=== PATIENT | male | born 1990 | race Two or more races ===

== ENCOUNTER 2016-11-26 20:16 | Emergency (ER) | payer SELFPAY ==
[~2016-11-26] VITALS: Ht 177.8 cm; Wt 69.9 kg
--- NOTE | 2016-11-26 21:03 | PHYS DOC ---
Past Medical History Additional Past Medical Histor: Panic attacks Past Surgical History: No Surgical History Smoking: Cigarettes Social History Narrative: Senegalese speaking; here with S.O. who speaks Luxembourger Adult General Chief Complaint Chief Complaint: DIZZY/LIGHT HEADED HPI HPI Patient is a 26 year old male who presents with complaints of heat exhaustion. 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 We have been experiencing a heat wave locally. He has been complaining of feeling lightheaded, dizzy, shaky, weak. Nausea but no vomiting. Urine has been clear. Some low back pain. No chest pain, no abdominal pain. No fever. No stool changes. Review of Systems Review of Systems Constitutional: Denies fever or chills Eyes: Denies change in visual acuity, redness, or eye pain HENT: Denies nasal congestion or sore throat Respiratory: Denies cough or shortness of breath Cardiovascular: No chest pain. GI: Denies abdominal pain, vomiting, bloody stools or diarrhea. Some nausea, : Denies dysuria or hematuria; no dark urine. Musculoskeletal: Denies joint pain. Some back pain. Integument: Denies rash or skin lesions Neurologic: Mild headache, No focal weakness or sensory changes Current Medications Current Medications Current Medications Medications (Trade) Dose Ordered Sig/Harriet Start Time Stop Time Status Last Admin Dose Admin Ondansetron HCl (Zofran) 4 mg 1X ONCE 11/26/16 21:30 11/26/16 21:31 DC 11/26/16 21:30 4 MG Sodium Chloride 1,000 ml @ 1,000 mls/hr 1X ONCE 11/26/16 21:30 11/26/16 22:29 DC 11/26/16 21:30 1,000 MLS/HR Allergies Allergies Allergies Coded Allergies Type Severity Reaction Last Updated Verified No Known Drug Allergies 11/26/16 No Physical Exam Physical Exam Constitutional: Well developed, well nourished, no acute distress, non-toxic appearance. HENT: Normocephalic, atraumatic, bilateral external ears normal, oropharynx moist, no oral exudates, nose normal. Eyes: PERRLA, EOMI, conjunctiva normal, no discharge. Neck: Normal range of motion, no tenderness, supple, no stridor. Cardiovascular:Heart rate regular rhythm, no murmur Lungs & Thorax: Bilateral breath sounds clear to auscultation Abdomen: Bowel sounds normal, soft, no tenderness, no masses, no pulsatile masses. Skin: Warm, dry, no erythema, no rash. Back: No tenderness, no CVA tenderness. Extremities: No tenderness, no cyanosis, no clubbing, ROM intact, no edema. Neurologic: Alert and oriented X 3, normal motor function, normal sensory function, no focal deficits noted. Psychologic: Affect normal, judgement normal, mood normal. Current Patient Data Vital Signs Vital Signs Date Time Temp Pulse Resp B/P (MAP) Pulse Ox O2 Delivery O2 Flow Rate FiO2 11/26/16 21:30 66 16 127/69 (88) 98 Room Air 11/26/16 20:44 98.4 98.4 Lab Values Laboratory Tests Test 11/26/16 21:18 11/26/16 21:25 White Blood Count 6.3 x10^3/uL (4.0-11.0) Red Blood Count 4.74 x10^6/uL (4.30-5.70) Hemoglobin 14.2 g/dL (13.0-17.5) Hematocrit 42.4 % (39.0-53.0) Mean Corpuscular Volume 89 fL (79-100) Mean Corpuscular Hemoglobin 30 pg (25-35) Mean Corpuscular Hemoglobin Concent 34 g/dL (31-37) Red Cell Distribution Width 13.9 % (11.5-14.5) Platelet Count 226 x10^3/uL (140-400) Neutrophils (%) (Auto) 57 % (31-73) Lymphocytes (%) (Auto) 31 % (24-48) Monocytes (%) (Auto) 9 % (0-9) Eosinophils (%) (Auto) 2 % (0-3) Basophils (%) (Auto) 0 % (0-3) Neutrophils # (Auto) 3.6 x10^3uL (1.8-7.7) Lymphocytes # (Auto) 2.0 x10^3/uL (1.0-4.8) Monocytes # (Auto) 0.6 x10^3/uL (0.0-1.1) Eosinophils # (Auto) 0.1 x10^3/uL (0.0-0.7) Basophils # (Auto) 0.0 x10^3/uL (0.0-0.2) Sodium Level 142 mmol/L (136-145) Potassium Level 3.8 mmol/L (3.5-5.1) Chloride Level 102 mmol/L (98-107) Carbon Dioxide Level 32 mmol/L (21-32) Anion Gap 8 (6-14) Blood Urea Nitrogen 16 mg/dL (8-26) Creatinine 1.3 mg/dL (0.7-1.3) Estimated GFR (Cockcroft-Gault) 66.2 BUN/Creatinine Ratio 12 (6-20) Glucose Level 121 mg/dL (70-99) H Calcium Level 8.8 mg/dL (8.5-10.1) Magnesium Level 2.1 mg/dL (1.8-2.4) Total Bilirubin 0.7 mg/dL (0.2-1.0) Direct Bilirubin 0.1 mg/dL (0.0-0.2) Aspartate Amino Transferase (AST) 18 U/L (15-37) Alanine Aminotransferase (ALT) 31 U/L (16-63) Alkaline Phosphatase 105 U/L (46-116) Creatine Kinase 238 U/L (39-308) Total Protein 7.6 g/dL (6.4-8.2) Albumin 4.0 g/dL (3.4-5.0) Albumin/Globulin Ratio 1.1 (1.0-1.7) Urine Collection Type Unknown Urine Color Yellow Urine Clarity Clear Urine pH 5.5 Urine Specific Winn 1.020 Urine Protein Negative mg/dL (NEG-TRACE) Urine Glucose (UA) Negative mg/dL (NEG) Urine Ketones (Stick) Negative mg/dL (NEG) Urine Blood Negative (NEG) Urine Nitrite Negative (NEG) Urine Bilirubin Negative (NEG) Urine Urobilinogen Dipstick 0.2 mg/dL (0.2 mg/dL) Urine Leukocyte Esterase Negative (NEG) Urine RBC Occ /HPF (0-2) Urine WBC 0 /HPF (0-4) Urine Squamous Epithelial Cells Few /LPF Urine Bacteria 0 /HPF (0-FEW) Urine Mucus Mod /LPF Laboratory Tests 11/26/16 21:18 Laboratory Tests 11/26/16 21:18 Radiology/Procedures Radiology/Procedures [facility] [address] [place] [address] IMAGING REPORT Signed PATIENT: JEFF NORMAN ACCOUNT: [id number] : 1990 LOCATION: ER AGE: 26 SEX: M EXAM STATUS: REG ER ORD. PHYSICIAN: SAHINA LEE MD REASON: dizzy PROCEDURE: CT HEAD WO CONTRAST CT of the head without contrast History:DIZZY, HX HTN, NO PRIORS. Technique: Standard noncontrast images are obtained. Exposure: One or more of the following individualized dose reduction techniques were utilized for this examination: 1. Automated exposure control 2. Adjustment of the mA and/or kV according to patient size 3. Use of iterative reconstruction technique. Comparison: None Findings: Posterior fossa is unremarkable. No evidence of acute intracranial hemorrhage, mass effect, midline shift or abnormal extra-axial fluid collection. Evans-white matter distinction is intact. Ventricles unremarkable and symmetric Visualized orbits are unremarkable. Visualized paranasal sinuses and mastoids are clear. No acute calvarial abnormality Impression: No evidence of acute intracranial pathology. Electronically signed by: Ammon Lopez MD (11/26/2016 11:03 PM) [facility] DICTATED and SIGNED BY: AMMON LOPEZ MD DATE: 11/26/16 5865 Course & Med Decision Making Course & Med Decision Making Pertinent Labs and Imaging studies reviewed. (See chart for details) Evaluated patient. Environmental Monitoring Technician phone used and S.O. is able to interpret as well. IV NS, IV Zofran and lab obtained. lab and CT head negative. Patient much improved. Discussed ways to keep cool. Dragon Disclaimer Dragon Disclaimer This electronic medical record was generated, in whole or in part, using a voice recognition dictation system. Departure Departure Impression: Primary Impression: Heat exhaustion Disposition: 01 HOME, SELF-CARE Condition: GOOD Patient Instructions: Heat Disorders Problem Qualifiers Primary Impression: Heat exhaustion Encounter type: initial encounter Qualified Codes: T67.5XXA - Heat exhaustion, unspecified, initial encounter SHAINA LEE MD Nov 26, 2016 21:03
[2016-11-26] MEDS ORDERED: IV NORMAL SALINE 1000ML BAG 1,000 ML IV ONE (21:30)
[2016-11-26] MEDS ORDERED: ONDANSETRON PF 4 MG/2 ML VIAL. IV ONE (21:30)
[2016-11-26 21:32] LABS: BASO % 0 % (0-3); EOS % 2 % (0-3); HEMATOCRIT 42.4 % (39.0-53.0); HEMOGLOBIN 14.2 g/dL (13.0-17.5); LYMPH % 31 % (24-48); MEAN CORPUSCULAR HEMOGLOBIN 30 pg (25-35); MEAN CORPUSCULAR HGB CONC 34 g/dL (31-37); MEAN CORPUSCULAR VOLUME 89 fL (79-100); MONO % 9 % (0-9); NEUT % 57 % (31-73); PLATELET COUNT 226 x10^3/uL (140-400); RED BLOOD COUNT 4.74 x10^6/uL (4.30-5.70); RED CELL DISTRIBUTION WIDTH 13.9 % (11.5-14.5); WHITE BLOOD COUNT 6.3 x10^3/uL (4.0-11.0)
[2016-11-26 21:35] LABS: BILIRUBIN,URINE NEGATIVE (NEG); GLUCOSE,URINE NEGATIVE (NEG); NITRITE,URINE NEGATIVE (NEG); PH,URINE 5.5; PROTEIN,URINE NEGATIVE (NEG-TRACE); UROBILINOGEN,URINE 0.2 mg/dL (0.2 mg/dL)
[2016-11-26 21:44] LABS: CALCIUM 8.8 mg/dL (8.5-10.1); CREATININE 1.3 mg/dL (0.7-1.3); GFR 66.2; POTASSIUM 3.8 mmol/L (3.5-5.1)
[2016-11-26 21:45] LABS: BACTERIA,URINE 0 /HPF (0-FEW); RBC,URINE OCC /HPF (0-2); SQUAMOUS EPITHELIAL CELL,UR FEW /LPF; WBC,URINE 0 /HPF (0-4)
[2016-11-26 22:01] LABS: ALBUMIN/GLOBULIN RATIO 1.1 (1.0-1.7); DIRECT BILIRUBIN 0.1 mg/dL (0.0-0.2); MAGNESIUM 2.1 mg/dL (1.8-2.4); TOTAL BILIRUBIN 0.7 mg/dL (0.2-1.0); TOTAL PROTEIN 7.6 g/dL (6.4-8.2)
--- NOTE | 2016-11-26 23:06 | RAD ---
CT of the head without contrast History:DIZZY, HX HTN, NO PRIORS. Technique: Standard noncontrast images are obtained. Exposure: One or more of the following individualized dose reduction techniques were utilized for this examination: 1. Automated exposure control 2. Adjustment of the mA and/or kV according to patient size 3. Use of iterative reconstruction technique. Comparison: None Findings: Posterior fossa is unremarkable. No evidence of acute intracranial hemorrhage, mass effect, midline shift or abnormal extra-axial fluid collection. Evans-white matter distinction is intact. Ventricles unremarkable and symmetric Visualized orbits are unremarkable. Visualized paranasal sinuses and mastoids are clear. No acute calvarial abnormality Impression: No evidence of acute intracranial pathology. Electronically signed by: Ammon Lopez MD (11/26/2016 11:03 PM) [place] [id number]
[2016-11-26 23:30] VITALS: BP 118/76
== END 2016-11-27 00:10 | disposition home or self-care (01) ==
LOC: ER 20:16
DX: T67.5XXA Heat exhaustion, unspecified, initial encounter (principal); M54.5 Low back pain; I10 Essential (primary) hypertension; F17.210 Nicotine dependence, cigarettes, uncomplicated; X30.XXXA Exposure to excessive natural heat, initial encounter; Y93.89 Activity, other specified; Y92.89 Other specified places as the place of occurrence of the external cause; Y99.8 Other external cause status
CPT/HCPCS: 36415; 70450; 80053; 80076; 81001; 82550; 83735; 85027; 96361; 96374; 99285; J2405; J7030